=== PATIENT | male | born 1950 | race Caucasian/White ===

== ENCOUNTER 2016-09-05 11:53 | Emergency (ER) | payer MEDICARE, BC ==
[~2016-09-05 11:53] MED LIST: ASAB PO; BRILINTA90 MG PO; CIALIS2.5 MG PO; DEPAKOT500 PO; DEPAKOTEER PO; EFFEXXR75 PO; FISH-EPA1000 MG PO; KLONO1 PO; TOPAMAX100 PO; TRAZ100 PO; TRAZ50 PO; X25 PO
== END 2016-09-05 12:00 | disposition home or self-care (01) ==
LOC: ER 11:53
DX: L08.89 Other specified local infections of the skin and subcutaneous tissue (principal); T81.4XXA Infection following a procedure, initial encounter; G20 Parkinson's disease; F41.9 Anxiety disorder, unspecified; F32.9 Major depressive disorder, single episode, unspecified; Z79.899 Other long term (current) drug therapy; Z79.82 Long term (current) use of aspirin
CPT/HCPCS: 87070; 87077; 87186; 87205; 99283